=== PATIENT | female | born 1965 | race Caucasian/White ===

== ENCOUNTER 2020-07-01 11:54 | Inpatient (IN) | payer OTHER ==
--- NOTE | 2020-07-01 14:25 | Event Note ---
ED Screening Note ED Screening Note: generalized abd pain intermittent for a month +nausea initially vomiting but stopped no diarrhea normal BM no fever no dysuria PMHx none took tylenol yesterday for pain went to [facility] yesterday no longer having menstrual cycles This initial assessment/diagnostic orders/clinical plan/treatment(s) is/are subject to change based on patients health status, clinical progression and re- assessment by fellow clinical providers in the ED. Further treatment and workup at subsequent clinical providers discretion. Patient/guardian urged not to elope from the ED as their condition may be serious if not clinically assessed and managed. Initial orders include: labs, UA
[2020-07-01 15:23] LABS: Basophils % (Auto) 0.3 % (0.0-1.8); Eosinophils % (Auto) 0.2 % (0.0-4.3); Hematocrit 40.6 % (30.3-42.9); Hemoglobin 13.8 gm/dl (10.1-14.3); Lymphocytes # (Auto) 1.4 K/mm3 (1.2-5.4); Mean Corpuscular HGB Conc 34 % (30-34); Mean Corpuscular Volume 97 fl (79-97); Monocytes % (Auto) 6.4 % (0.0-7.3); Platelet Count 323 K/mm3 (140-440); Red Blood Count 4.19 M/mm3 (3.65-5.03); Red Cell Distribution Width 13.3 % (13.2-15.2)
[2020-07-01 15:31] LABS: Calcium Oxalate Crystals,Urine 1+; Hyaline Casts,Urine 1 /LPF; Mucus,Urine 1+ /HPF
[2020-07-01 15:36] LABS: Bilirubin,Urine Small (Negative); Blood,Urine Trace (Negative); Color,Urine Yellow (Yellow)
[2020-07-01 15:37] LABS: Ictotest,Urine Negative (Negative); PH,Urine 6.5 (5.0-7.0); Urobilinogen,Urine < 0.2 mg/dL (<2.0)
[2020-07-01 15:41] LABS: Alanine Aminotransferase 37 units/L (7-56); Albumin 4.1 g/dL (3.9-5); Blood Urea Nitrogen 9 mg/dL (7-17); Calcium 9.6 mg/dL (8.4-10.2); Hemolysis Index 15
[2020-07-01 15:43] LABS: BUN/Creatinine Ratio 18
--- NOTE | 2020-07-01 17:40 | Emergency Department Report ---
ED Abdominal Pain HPI - General Chief Complaint: Abdominal Pain Stated Complaint: ABD PAIN EXTREME Time Seen by Provider: 07/01/20 14:23 Source: patient Mode of arrival: Ambulatory Limitations: No Limitations - History of Present Illness Initial Comments: 55-year-old female presents to the emergency room complaining of abdominal pain for about a month. Patient states that she was seen at [facility] yesterday and they checked her urine and did an x-ray of her stomach. Patient states that he has not improved. Patient reports she is taken Tylenol yesterday and Advil PM. She denies any past medical history. She did report nausea and vomiting in the beginning but just nausea. Patient reports she does not take any medications on a daily basis. Pain is in the right lower quadrant and then will migrate to the left and all over MD Complaint: abdominal pain Onset/Timin -: month(s) Location: RUQ Radiation: LLQ Severity scale (0 -10): 8 Quality: cramping, sharp Consistency: intermittent Improves With: nothing Worsens With: nothing Associated Symptoms: nausea - Related Data Home Medications Medication Instructions Recorded Confirmed Last Taken No Known Home Medications [No 01/10/16 01/10/16 Unknown Reported Home Medications] Allergies Allergy/AdvReac Type Severity Reaction Status Date / Time No Known Allergies Allergy Unverified 11/21/15 07:15 ED Review of Systems ROS: Stated complaint: ABD PAIN EXTREME Other details as noted in HPI Comment: All other systems reviewed and negative ED Past Medical Hx - Past Medical History Previous Medical History?: Yes Hx GERD: Yes Hx Arthritis: Yes (hands) Hx Kidney Stones: Yes (removed laser surgery) Hx HIV: No - Social History Smoking Status: Never Smoker Substance Use Type: None - Medications Home Medications: Home Medications Medication Instructions Recorded Confirmed Last Taken Type No Known Home Medications [No 01/10/16 01/10/16 Unknown History Reported Home Medications] ED Physical Exam - General Limitations: No Limitations General appearance: alert, in no apparent distress - Head Head exam: Present: atraumatic, normocephalic - Eye Eye exam: Present: normal appearance - ENT ENT exam: Present: mucous membranes moist - Neck Neck exam: Present: normal inspection - Respiratory Respiratory exam: Present: accessory muscle use - GI/Abdominal GI/Abdominal exam: Present: soft. Absent: distended, tenderness - Back Exam Back exam: Present: CVA tenderness (L) - Neurological Exam Neurological exam: Present: alert, oriented X3, normal gait - Psychiatric Psychiatric exam: Present: normal affect, normal mood - Skin Skin exam: Present: warm, dry, intact, normal color. Absent: rash ED Course Vital Signs 07/01/20 12:13 Temperature 98.3 F Pulse Rate 90 Respiratory 20 Rate Blood Pressure 149/99 O2 Sat by Pulse 98 Oximetry - Consultations Consultation #1: 07/01/20 18:[address] Marshall general surgeon on-call to review over CT findings. She recommend GI consult Zosyn normal saline and n.p.o. Consultation #2: 07/01/20 19:[address] Valladares informed him of admission. Consultation #3: 07/01/20 19:[address] Samuel GI specialist he stated he will consult Dr. Marshall. He return call to nv to start Solu-Medrol 20 mg IV every 8 and he will evaluate patient on the floor ED Medical Decision Making - Lab Data Result diagrams: 07/01/20 14:57 07/01/20 14:57 - Radiology Data Radiology results: report reviewed Patient: LUCIANO CERVANTES MR#: [id number] : 1965 Acct:[id number] Age/Sex: 55 / F ADM Date: 07/01/20 Loc: ED Attending Dr: Ordering Physician: NAOMI SANDERS Date of Service: 07/01/20 Procedure(s): CT abdomen pelvis w con Accession Number(s): [id number] cc: NAOMI SANDERS CT ABDOMEN AND PELVIS WITH CONTRAST INDICATION: Abdominal pain with nausea. TECHNIQUE: Axial CT images were obtained through the abdomen and pelvis after 100 cc Omni [address] scans at this location are performed using CT dose reduction for ALARA by means of automated exposure control. COMPARISON: None available. FINDINGS: LOWER CHEST: No significant abnormality. LIVER: No significant abnormality. GALLBLADDER: No significant abnormality. BILE DUCTS: No significant abnormality. PANCREAS: No significant abnormality. SPLEEN: No significant abnormality. ADRENALS: No significant abnormality. RIGHT KIDNEY and URETER: Complex 8mm right upper pole renal cyst with coarse calcification in its wall. Tiny nonobstructing 1 mm punctate right renal stone. LEFT KIDNEY and URETER: No significant abnormality. STOMACH and SMALL BOWEL: Markedly thickened terminal ileum and cecum characteristic for Crohn's disease. COLON: Moderately thickened cecum characteristic for Crohn's colitis APPENDIX: Dilated and fluid filled measuring 1.6 cm characteristic for appendicitis with moderate amount of periappendiceal inflammation PERITONEUM: No free fluid. No free air. No fluid collection. LYMPH NODES: Multiple shotty reactive subcentimeter pericecal and mesenteric lymph nodes. AORTA and ARTERIES: No significant abnormality. IVC and VEINS: No significant abnormality. URINARY BLADDER: No significant abnormality. REPRODUCTIVE ORGANS: No significant abnormality. ADDITIONAL FINDINGS: None. SKELETAL SYSTEM: No significant abnormality. IMPRESSION: 1. Acute appendicitis and markedly thickened cecum and distal small bowel likely secondary to underlying Crohn's disease with secondary appendicitis from adjacent inflammation less likely severe acute appendicitis with marked secondary involvement of terminal ileum and cecum. Signer Name: Frank Powers MD Signed: 07/01/2020 6:24 PM Workstation Name: [id number] Transcribed By: TL Dictated By: Frank Powers MD Electronically Authenticated By: Frank Powers MD Signed Date/Time: 07/01/201823 DD/ 10 TD/TT: - Medical Decision Making 55-year-old female presents to the emergency room complaining of abdominal pain for about a month. Patient states that she was seen at [facility] yesterday and they checked her urine and did an x-ray of her stomach. Patient states that he has not improved. Patient reports she is taken Tylenol yesterday and Advil PM. She denies any past medical history. She did report nausea and vomiting in the beginning but just nausea. Patient reports she does not take any medications on a daily basis. Pain is in the right lower quadrant and then will migrate to the left and all over. CT scan shows that she has acute appendicitis versus Crohn's flareup which is a new diagnosis for this patient. Patient does have an elevated white count of 15.8. Patient is initiated normal saline, Zosyn, morphine 2 mg, and in place NPO. Waiting for GI consult spoke to surgery. Critical care attestation.: If time is entered above; I have spent that time in minutes in the direct care of this critically ill patient, excluding procedure time. ED Disposition Clinical Impression: Crohn's disease of appendix, Leukocytosis Disposition: OP ADMIT IP TO THIS HOSP Is pt being admited?: Yes Does the pt Need Aspirin: Yes Condition: Stable Instructions: Abdominal Pain (ED) Referrals: PRIMARY CARE,MD [Primary Care Provider] - 3-5 Days
--- NOTE | 2020-07-01 18:29 | Cat Scan Report ---
CT ABDOMEN AND PELVIS WITH CONTRAST INDICATION: Abdominal pain with nausea. TECHNIQUE: Axial CT images were obtained through the abdomen and pelvis after 100 cc Omni [address] scans at this location are performed using CT dose reduction for ALARA by means of automated expos ure control. COMPARISON: None available. FINDINGS: LOWER CHEST: No significant abnormality. LIVER: No significant abnormality. GALLBLADDER: No significant abnormality. BILE DUCTS: No significant abnormality. PANCREAS: No significant abnormality. SPLEEN: No significant abnormality. ADRENALS: No significant abnormality. RIGHT KIDNEY and URETER: Complex 8mm right upper pole renal cyst with coarse calcification in its wal l. Tiny nonobstructing 1 mm punctate right renal stone. LEFT KIDNEY and URETER: No significant abnormality. STOMACH and SMALL BOWEL: Markedly thickened terminal ileum and cecum characteristic for Crohn's disea se. COLON: Moderately thickened cecum characteristic for Crohn's colitis APPENDIX: Dilated and fluid filled measuring 1.6 cm characteristic for appendicitis with moderate nacho unt of periappendiceal inflammation PERITONEUM: No free fluid. No free air. No fluid collection. LYMPH NODES: Multiple shotty reactive subcentimeter pericecal and mesenteric lymph nodes. AORTA and ARTERIES: No significant abnormality. IVC and VEINS: No significant abnormality. URINARY BLADDER: No significant abnormality. REPRODUCTIVE ORGANS: No significant abnormality. ADDITIONAL FINDINGS: None. SKELETAL SYSTEM: No significant abnormality. IMPRESSION: 1. Acute appendicitis and markedly thickened cecum and distal small bowel likely secondary to underly ing Crohn's disease with secondary appendicitis from adjacent inflammation less likely severe acute a ppendicitis with marked secondary involvement of terminal ileum and cecum. Signer Name: Frank Powers MD Signed: 07/01/2020 6:24 PM Workstation Name: [id number]
[2020-07-01] MEDS ORDERED: SODIUM CHLORIDE 0.9% 1000 ML 1,000 ML IV ONE (18:38)
[2020-07-01] MEDS ORDERED: MORPHINE 2 MG/1 ML INJ IV ONE (18:38)
[2020-07-01] MEDS ORDERED: ONDANSETRON 4 MG/2 ML INJ IV ONE (18:39)
[2020-07-01] MEDS ORDERED: PIPERACILLIN/TAZOBACTAM 3.375 3.375 GM/50 ML BAG IV ONE (18:44)
[2020-07-01] MEDS ORDERED: SODIUM CHLORIDE 0.9% IV SCH (20:00)
[2020-07-01] MEDS ORDERED: METHYLPREDNISOLONE SOD SUC IV SCH (20:00)
--- NOTE | 2020-07-01 22:36 | History and Physical Report ---
History of Present Illness Date of examination: 07/01/20 Date of admission: 07/01/20 18:59 Chief complaint: Abdominal pain off and on for 1 month History of present illness: 55-year-old female with history of arthritis and GERD and kidney stones comes in for abdominal pain of 1 month duration. Patient went to [facility] and they gave him symptomatic treatment with no relief. Patient comes in for nausea and vomiting and diffuse abdominal pain. Abdominal pain is a 6-8 on a scale of 1-10. Intermittent in nature. No diarrhea. Some nausea and vomiting present. No fever. No exposure to coronavirus. Not on any home medications. - Past Medical History Previous Medical History?: Yes --GERD: Yes --Arthritis: Yes (hands) --Kidney Stones: Yes (removed laser surgery) Surgical history None - Social History Smoking Status: Never Smoker Substance Use Type: None - Medications Home Medications: Home Medications Medication Instructions Recorded Confirmed Last Taken Type No Known Home Medications [No 01/10/16 01/10/16 Unknown History Reported Home Medications] Review of Systems ROS: Stated complaint: ABD PAIN EXTREME Other details as noted in HPI Comment: All other systems reviewed and negative Medications and Allergies Allergies Allergy/AdvReac Type Severity Reaction Status Date / Time No Known Allergies Allergy Unverified 11/21/15 07:15 Home Medications Medication Instructions Recorded Confirmed Last Taken Type No Known Home Medications [No 01/10/16 01/10/16 Unknown History Reported Home Medications] Active Meds: Active Medications Methylprednisolone Sodium Succinate (Solu-Medrol) 20 mg IV Q8HR JENNIFER Exam - Constitutional Vitals: Temp Pulse Resp BP Pulse Ox 98.2 F 82 18 142/80 98 07/01/20 20:13 07/01/20 20:13 07/01/20 20:13 07/01/20 20:13 07/01/20 20:13 General appearance: Present: no acute distress, well-nourished - EENT Eyes: Present: PERRL ENT: hearing intact, clear oral mucosa - Neck Neck: Present: supple, normal ROM - Respiratory Respiratory effort: normal Respiratory: bilateral: CTA - Cardiovascular Heart rate: 78 Rhythm: regular Heart Sounds: Present: S1 & S2. Absent: rub, click - Extremities Extremities: pulses symmetrical, No edema Peripheral Pulses: within normal limits - Abdominal General gastrointestinal: Present: soft, tender, non-distended, normal bowel sounds Localized gastrointestinal: tender: diffuse (No guarding or rigidity.) Female genitourinary: Present: normal - Integumentary Integumentary: Present: clear, warm, dry - Musculoskeletal Musculoskeletal: gait normal, strength equal bilaterally - Psychiatric Psychiatric: appropriate mood/affect, intact judgment & insight - Neurologic Neurologic: CNII-XII intact, moves all extremities Results - Labs CBC & Chem 7: 07/01/20 14:57 07/01/20 14:57 Labs: Laboratory Last Values WBC 15.8 K/mm3 (4.5-11.0) H 07/01/20 14:57 RBC 4.19 M/mm3 (3.65-5.03) 07/01/20 14:57 Hgb 13.8 gm/dl (10.1-14.3) 07/01/20 14:57 Hct 40.6 % (30.3-42.9) 07/01/20 14:57 MCV 97 fl (79-97) 07/01/20 14:57 MCH 33 pg (28-32) H 07/01/20 14:57 MCHC 34 % (30-34) 07/01/20 14:57 RDW 13.3 % (13.2-15.2) 07/01/20 14:57 Plt Count 323 K/mm3 (140-440) 07/01/20 14:57 Lymph % (Auto) 9.0 % (13.4-35.0) L 07/01/20 14:57 [place] % (Auto) 6.4 % (0.0-7.3) 07/01/20 14:57 Eos % (Auto) 0.2 % (0.0-4.3) 07/01/20 14:57 Baso % (Auto) 0.3 % (0.0-1.8) 07/01/20 14:57 Lymph # (Auto) 1.4 K/mm3 (1.2-5.4) 07/01/20 14:57 [place] # (Auto) 1.0 K/mm3 (0.0-0.8) H 07/01/20 14:57 Eos # (Auto) 0.0 K/mm3 (0.0-0.4) 07/01/20 14:57 Baso # (Auto) 0.0 K/mm3 (0.0-0.1) 07/01/20 14:57 Seg Neutrophils % 84.1 % (40.0-70.0) H 07/01/20 14:57 Seg Neutrophils # 13.3 K/mm3 (1.8-7.7) H 07/01/20 14:57 Sodium 140 mmol/L (137-145) 07/01/20 14:57 Potassium 4.2 mmol/L (3.6-5.0) 07/01/20 14:57 Chloride 101.7 mmol/L (98-107) 07/01/20 14:57 Carbon Dioxide 29 mmol/L (22-30) 07/01/20 14:57 Anion Gap 14 mmol/L 07/01/20 14:57 BUN 9 mg/dL (7-17) 07/01/20 14:57 Creatinine 0.5 mg/dL (0.6-1.2) L 07/01/20 14:57 Estimated GFR > 60 ml/min 07/01/20 14:57 BUN/Creatinine Ratio 18 % 07/01/20 14:57 Glucose 106 mg/dL (65-100) H 07/01/20 14:57 Calcium 9.6 mg/dL (8.4-10.2) 07/01/20 14:57 Total Bilirubin 0.50 mg/dL (0.1-1.2) 07/01/20 14:57 AST 20 units/L (5-40) 07/01/20 14:57 ALT 37 units/L (7-56) 07/01/20 14:57 Alkaline Phosphatase 199 units/L (35-129) H 07/01/20 14:57 Total Protein 7.5 g/dL (6.3-8.2) 07/01/20 14:57 Albumin 4.1 g/dL (3.9-5) 07/01/20 14:57 Albumin/Globulin Ratio 1.2 % 07/01/20 14:57 Lipase 14 units/L (13-60) 07/01/20 14:57 Urine Color Yellow (Yellow) 07/01/20 14:37 Urine Turbidity Clear (Clear) 07/01/20 14:37 Urine pH 6.5 (5.0-7.0) 07/01/20 14:37 Ur Specific [place] 1.020 (1.003-1.030) 07/01/20 14:37 Urine Protein 30 mg/dl mg/dL (Negative) 07/01/20 14:37 Urine Glucose (UA) Negative mg/dL (Negative) 07/01/20 14:37 Urine Ketones 5 mg/dL (Negative) 07/01/20 14:37 Urine Blood Trace (Negative) 07/01/20 14:37 Urine Nitrite Negative (Negative) 07/01/20 14:37 Ur Reducing Substances Not Reportable 07/01/20 14:37 Urine Bilirubin Small (Negative) 07/01/20 14:37 Urine Ictotest Negative (Negative) 07/01/20 14:37 Urine Urobilinogen < 0.2 mg/dL (<2.0) 07/01/20 14:37 Ur Leukocyte Esterase Trace (Negative) 07/01/20 14:37 Urine WBC (Auto) 8.0 /HPF (0.0-6.0) H 07/01/20 14:37 Urine RBC (Auto) 9.0 /HPF (0.0-6.0) 07/01/20 14:37 U Epithel Cells (Auto) 6.0 /HPF (0-13.0) 07/01/20 14:37 Calcium Oxalate Crystal 1+ 07/01/20 14:37 Hyaline Casts 1 /LPF 07/01/20 14:37 Urine Mucus 1+ /HPF 07/01/20 14:37 Short CBC 07/01/20 Range/Units 14:57 WBC 15.8 H (4.5-11.0) K/mm3 Hgb 13.8 (10.1-14.3) gm/dl Hct 40.6 (30.3-42.9) % Plt Count 323 (140-440) K/mm3 BMP 07/01/20 14:57 Sodium 140 Potassium 4.2 Chloride 101.7 Carbon Dioxide 29 BUN 9 Creatinine 0.5 L Glucose 106 H Calcium 9.6 Liver Function 07/01/20 Range/Units 14:57 Total Bilirubin 0.50 (0.1-1.2) mg/dL AST 20 (5-40) units/L ALT 37 (7-56) units/L Alkaline Phosphatase 199 H (35-129) units/L Albumin 4.1 (3.9-5) g/dL Urine 12/06/20 Range/Units 14:37 Urine Color Yellow (Yellow) Urine pH 6.5 (5.0-7.0) Ur Specific [place] 1.020 (1.003-1.030) Urine Protein 30 mg/dl (Negative) mg/dL Urine Glucose (UA) Negative (Negative) mg/dL - Imaging and Cardiology CT scan - abdomen: report reviewed Imaging and Cardiology: Abdominal CT STOMACH and SMALL BOWEL: Markedly thickened terminal ileum and cecum characteristic for Crohn's disease. COLON: Moderately thickened cecum characteristic for Crohn's colitis APPENDIX: Dilated and fluid filled measuring 1.6 cm characteristic for appendicitis with moderate amount of periappendiceal inflammation PERITONEUM: No free fluid. No free air. No fluid collection. LYMPH NODES: Multiple shotty reactive subcentimeter pericecal and mesenteric lymph nodes. AORTA and ARTERIES: No significant abnormality. IVC and VEINS: No significant abnormality. URINARY BLADDER: No significant abnormality. REPRODUCTIVE ORGANS: No significant abnormality. ADDITIONAL FINDINGS: None. SKELETAL SYSTEM: No significant abnormality. IMPRESSION: 1. Acute appendicitis and markedly thickened cecum and distal small bowel likely secondary to underlying Crohn's disease with secondary appendicitis from adjacent inflammation less likely severe acute appendicitis with marked secondary involvement of terminal ileum and cecum. Florentino/IV: IV Catheter Type [Right Distal INT / Saline Lock Port Antecubital] Assessment and Plan Advance Directives: Yes (Full code) VTE prophylaxis?: Chemical Plan of care discussed with patient/family: Yes - Patient Problems (1) SIRS (systemic inflammatory response syndrome) Current Visit: Yes Status: Acute Plan to address problem: Patient has a high white count (2) Exacerbation of Crohn's disease Current Visit: Yes Status: Acute Qualifiers: Digestive disease complication type: without complication Qualified Code(s): K50.90 - Crohn's disease, unspecified, without complications Plan to address problem: Patient with newly diagnosed Crohn's disease involving the terminal ileum and cecum and appendix Surgery consult and GI consult requested Patient started on Zosyn and Flagyl Steroids were not started. Will defer to gastroenterology. IV fluids for now. (3) DVT prophylaxis Current Visit: Yes Status: Acute Plan to address problem: On heparin and GI prophylaxis
[2020-07-01] MEDS ORDERED: HYDROmorphone 1 MG/1 ML INJ IV PRN (22:40)
[2020-07-01] MEDS ORDERED: METOCLOPRAMIDE 10 MG/2 ML INJ IV PRN (22:40)
[2020-07-01] MEDS ORDERED: ACETAMINOPHEN 325 MG TAB PO PRN (22:40)
[2020-07-01] MEDS ORDERED: MORPHINE 2 MG/1 ML INJ IV PRN (22:40)
[2020-07-01] MEDS ORDERED: ONDANSETRON 4 MG/2 ML INJ IV PRN (22:40)
[2020-07-01] MEDS: metroNIDAZOLE/NS 500 MG/100 ML 500 MG/100 ML BAG IV SCH (23:26)
[2020-07-01] MEDS: HEPARIN 5,000 UNIT/1 ML VIAL SUB-Q SCH (23:26)
[2020-07-01] MEDS: methylPREDNISolone Sod Succinate 40 MG/1 ML INJ IV SCH (23:26)
[2020-07-01] MEDS: FAMOTIDINE 20 MG/2 ML INJ IV SCH (23:34)
[2020-07-01] MEDS: SODIUM CHLORIDE 0.9% 1000 ML 1,000 ML IV SCH (23:34)
[2020-07-02] MEDS: methylPREDNISolone Sod Succinate 40 MG/1 ML INJ IV SCH ×3 (05:20→22:31)
[2020-07-02] MEDS: metroNIDAZOLE/NS 500 MG/100 ML 500 MG/100 ML BAG IV SCH ×3 (05:20→22:31)
[2020-07-02] MEDS: PIPERACIL/TAZOBACTA 4.5/NS 100 4.5 GM/100 ML VIAL IV SCH ×2 (06:00→14:17)
[2020-07-02 06:41] LABS: Hematocrit 37.7 % (30.3-42.9); Hemoglobin 12.4 gm/dl (10.1-14.3); Mean Corpuscular HGB Conc 33 % (30-34); Mean Corpuscular Volume 96 fl (79-97); Platelet Count 317 K/mm3 (140-440); Red Blood Count 3.92 M/mm3 (3.65-5.03)
[2020-07-02 07:09] LABS: Alanine Aminotransferase 26 units/L (7-56); Albumin 3.3 g/dL (3.9-5); Blood Urea Nitrogen 13 mg/dL (7-17); Calcium 9.4 mg/dL (8.4-10.2); Hemolysis Index 0
[2020-07-02 07:24] LABS: BUN/Creatinine Ratio 22
[2020-07-02] MEDS: FAMOTIDINE 20 MG/2 ML INJ IV SCH ×2 (10:22→22:31)
[2020-07-02] MEDS: HEPARIN 5,000 UNIT/1 ML VIAL SUB-Q SCH ×2 (10:22→22:31)
--- NOTE | 2020-07-02 10:29 | Progress Note ---
Assessment and Plan Assessment and plan: Patient Problems (1) SIRS (systemic inflammatory response syndrome) Current Visit: Yes Status: Acute Plan to address problem: Patient has a high white count Trend labs (2) Exacerbation of Crohn's disease Current Visit: Yes Status: Acute Qualifiers: Digestive disease complication type: without complication Qualified Code(s): K50.90 - Crohn's disease, unspecified, without complications Plan to address problem: Patient with newly diagnosed Crohn's disease involving the terminal ileum and cecum and appendix Continue Zosyn Steroids N.p.o. for now Continue IV hydration GI and general surgery consulted (3) DVT prophylaxis Current Visit: Yes Status: Acute Plan to address problem: On heparin and GI prophylaxis History Interval history: Patient seen and examined at bedside this morning Has right-sided abdominal pain. Denies any diarrhea or vomiting. General surgery and gastroenterology consulted Hospitalist Physical - Physical exam Narrative exam: VITAL SIGNS: Reviewed. GENERAL: Awake HEAD: No signs of head trauma. EYES: Pupils are equal. Extraocular motions intact. MOUTH: Oropharynx is normal. NECK: No adenopathy, no JVD. CHEST: Chest with diminished breath sounds bilaterally. No wheezes, rales, or rhonchi. CARDIAC: normal S1 and S2, without murmurs, gallops, or rubs. ABDOMEN: Soft, tender left lower quadrant, no rebound or guarding, and no masses palpated. Bowel Sounds normal. MUSCULOSKELETAL: No edema NEUROLOGIC EXAM: Alert and oriented x3. No focal neurologic deficits SKIN: No obvious lesions - Constitutional Vitals: Temp Pulse Resp BP Pulse Ox 98.7 F 75 16 94/62 96 07/02/20 04:31 07/02/20 04:31 07/02/20 04:31 07/02/20 04:31 07/02/20 04:31 Results - Labs CBC & Chem 7: 07/02/20 05:28 07/02/20 05:28 Labs: Laboratory Last Values WBC 12.1 K/mm3 (4.5-11.0) H 07/02/20 05:28 RBC 3.92 M/mm3 (3.65-5.03) 07/02/20 05:28 Hgb 12.4 gm/dl (10.1-14.3) 07/02/20 05:28 Hct 37.7 % (30.3-42.9) 07/02/20 05:28 MCV 96 fl (79-97) 07/02/20 05:28 MCH 32 pg (28-32) 07/02/20 05:28 MCHC 33 % (30-34) 07/02/20 05:28 RDW 13.0 % (13.2-15.2) L 07/02/20 05:28 Plt Count 317 K/mm3 (140-440) 07/02/20 05:28 Lymph % (Auto) 9.0 % (13.4-35.0) L 07/01/20 14:57 Saunders % (Auto) 6.4 % (0.0-7.3) 07/01/20 14:57 Eos % (Auto) 0.2 % (0.0-4.3) 07/01/20 14:57 Baso % (Auto) 0.3 % (0.0-1.8) 07/01/20 14:57 Lymph # (Auto) 1.4 K/mm3 (1.2-5.4) 07/01/20 14:57 Saunders # (Auto) 1.0 K/mm3 (0.0-0.8) H 07/01/20 14:57 Eos # (Auto) 0.0 K/mm3 (0.0-0.4) 07/01/20 14:57 Baso # (Auto) 0.0 K/mm3 (0.0-0.1) 07/01/20 14:57 Seg Neutrophils % Hand Box Folder 07/02/20 05:28 Seg Neutrophils # 13.3 K/mm3 (1.8-7.7) H 07/01/20 14:57 Sodium 140 mmol/L (137-145) 07/02/20 05:28 Potassium 3.8 mmol/L (3.6-5.0) 07/02/20 05:28 Chloride 104.4 mmol/L (98-107) 07/02/20 05:28 Carbon Dioxide 24 mmol/L (22-30) 07/02/20 05:28 Anion Gap 15 mmol/L 07/02/20 05:28 BUN 13 mg/dL (7-17) 07/02/20 05:28 Creatinine 0.6 mg/dL (0.6-1.2) 07/02/20 05:28 Estimated GFR > 60 ml/min 07/02/20 05:28 BUN/Creatinine Ratio 22 % 07/02/20 05:28 Glucose 149 mg/dL (65-100) H 07/02/20 05:28 Hemoglobin A1c 6.2 % (4-6) H 07/02/20 05:28 Calcium 9.4 mg/dL (8.4-10.2) 07/02/20 05:28 Total Bilirubin 0.40 mg/dL (0.1-1.2) 07/02/20 05:28 AST 14 units/L (5-40) 07/02/20 05:28 ALT 26 units/L (7-56) 07/02/20 05:28 Alkaline Phosphatase 164 units/L (35-129) H 07/02/20 05:28 Total Protein 7.3 g/dL (6.3-8.2) 07/02/20 05:28 Albumin 3.3 g/dL (3.9-5) L 07/02/20 05:28 Albumin/Globulin Ratio 0.8 % 07/02/20 05:28 Lipase 14 units/L (13-60) 07/01/20 14:57 Urine Color Yellow (Yellow) 07/01/20 14:37 Urine Turbidity Clear (Clear) 07/01/20 14:37 Urine pH 6.5 (5.0-7.0) 07/01/20 14:37 Ur Specific [place] 1.020 (1.003-1.030) 07/01/20 14:37 Urine Protein 30 mg/dl mg/dL (Negative) 07/01/20 14:37 Urine Glucose (UA) Negative mg/dL (Negative) 07/01/20 14:37 Urine Ketones 5 mg/dL (Negative) 07/01/20 14:37 Urine Blood Trace (Negative) 07/01/20 14:37 Urine Nitrite Negative (Negative) 07/01/20 14:37 Ur Reducing Substances Not Reportable 07/01/20 14:37 Urine Bilirubin Small (Negative) 07/01/20 14:37 Urine Ictotest Negative (Negative) 07/01/20 14:37 Urine Urobilinogen < 0.2 mg/dL (<2.0) 07/01/20 14:37 Ur Leukocyte Esterase Trace (Negative) 07/01/20 14:37 Urine WBC (Auto) 8.0 /HPF (0.0-6.0) H 07/01/20 14:37 Urine RBC (Auto) 9.0 /HPF (0.0-6.0) 07/01/20 14:37 U Epithel Cells (Auto) 6.0 /HPF (0-13.0) 07/01/20 14:37 Calcium Oxalate Crystal 1+ 07/01/20 14:37 Hyaline Casts 1 /LPF 07/01/20 14:37 Urine Mucus 1+ /HPF 07/01/20 14:37 Florentino/IV: Voiding Method Toilet IV Catheter Type [Right Distal INT / Saline Lock Port Antecubital] Active Medications - Current Medications Current Medications: Generic Name Dose Route Start Last Admin Trade Name Freq PRN Reason Stop Dose Admin Acetaminophen 650 mg 07/01/20 22:40 Tylenol PO Q4H PRN Pain MILD(1-3)/Fever >100.5/BURNS Famotidine 20 mg 07/01/20 23:00 07/02/20 10:22 Pepcid IV 20 mg BID JENNIFER Administration Heparin Sodium (Porcine) 5,000 unit 07/01/20 23:00 07/02/20 10:22 Heparin SUB-Q 5,000 unit Q12HR JENNIFER Administration Hydromorphone HCl 0.5 mg 07/01/20 22:40 Dilaudid IV Q3H PRN Pain , Severe (7-10) Sodium Chloride 1,000 mls @ 75 mls/hr 07/01/20 22:45 07/01/20 23:34 Nacl 0.9% 1000 Ml IV 75 mls/hr DIRECT JENNIFER Administration Metronidazole 500 mg in 100 mls @ 100 mls/hr 07/01/20 23:00 07/02/20 05:20 Flagyl 500 Mg/100 Ml IV 100 mls/hr Q8HR JENNIFER Administration Protocol Piperacillin Sod/Tazobactam Sod 4.5 gm in 100 mls @ 200 mls/hr 07/02/20 06:00 07/02/20 06:00 Zosyn/Ns 4.5gm/100ml IV 200 mls/hr Q8HR JENNIFER Administration Protocol Methylprednisolone Sodium Succinate 20 mg 07/01/20 22:00 07/02/20 05:20 Solu-Medrol IV 20 mg Q8HR JENNIFER Administration Metoclopramide HCl 10 mg 07/01/20 22:40 Reglan IV Q6H PRN Nausea And Vomiting Morphine Sulfate 2 mg 07/01/20 22:40 Morphine IV Q4H PRN Pain, Moderate (4-6) Ondansetron HCl 4 mg 07/01/20 22:40 Zofran IV Q3H PRN Nausea And Vomiting Sodium Chloride 10 ml 07/02/20 10:00 07/02/20 10:23 Sodium Chloride Flush Syringe 10 Ml IV 10 ml BID JENNIFER Administration Sodium Chloride 10 ml 07/01/20 22:40 Sodium Chloride Flush Syringe 10 Ml IV PRN PRN LINE FLUSH
[2020-07-02 11:14] LABS: Band Neutrophils # (Manual) 0.2 K/mm3; Basophils % (Manual) 0 % (0.0-1.8); Eosinophils % (Manual) 0 % (0.0-4.3); Monocytes % (Manual) 0 % (0.0-7.3); Platelet Estimate Consistent w Auto; RBC Morphology Normal; Total Cells Counted 100
--- NOTE | 2020-07-02 14:47 | Event Note ---
Date: 07/02/20 full GI consult dictated - probable Crohn's disease - IV steroids, to po when stable - continue antibiotics - if continue improve can start clear liquid in am if ok with surgery - colonoscopy when stable as outpt - will follow
--- NOTE | 2020-07-02 16:15 | Event Note ---
Date: 07/02/20 Dr. Dean Marshall/ Gen Surgery consulted yesterday,I just spoke with her about this case, Pt seen and examined, my impression is that the patient has Chron's Dz and the appendiceal findings have to be evaluated in the context of the other findings in her cecum and terminal illeum. I agree with medical management, I have taken the liberty to change the antibiotics to levaquin and flagyll, and agree with steroids and clear liquids.GI on board, Dr. Marshall to see patient. I will sign off, please reconsult me if needed.
--- NOTE | 2020-07-02 16:43 | Consultation ---
History of Present Illness Consult date: 07/02/20 Reason for consult: abdominal pain Chief complaint: Abdominal pain - History of present illness History of present illness: 55-year-old female with no past medical history presents to the emergency room w ith complaints of right lower quadrant abdominal pain. The pain is sharp and does not radiate. It started approximately 1 month ago and has been intermittent since. It has gradually become worse and this prompted her to visit the emergency room. Per the patient's daughter she may have also had an episode like this more than a month ago which resolved on its own. No alleviating or exacerbating factors. Patient states that this is associated with subjective fevers. Denies nausea, vomiting, chest pain, shortness of breath, diarrhea, constipation. No hematochezia or melena. Past History Past Medical History: No medical history Past Surgical History: Social history: no significant social history Family history: no significant family history Medications and Allergies Allergies Allergy/AdvReac Type Severity Reaction Status Date / Time No Known Allergies Allergy Unverified 11/21/15 07:15 Home Medications Medication Instructions Recorded Confirmed Last Taken Type No Known Home Medications [No 01/10/16 07/02/20 Unknown History Reported Home Medications] Active Meds: Active Medications Acetaminophen (Tylenol) 650 mg PO Q4H PRN PRN Reason: Pain MILD(1-3)/Fever >100.5/BURNS Famotidine (Pepcid) 20 mg IV BID [facility] Last Admin: 07/02/20 10:22 Dose: 20 mg Documented by: Heparin Sodium (Porcine) (Heparin) 5,000 unit SUB-Q Q12HR JENNIFER Last Admin: 07/02/20 10:22 Dose: 5,000 unit Documented by: Hydromorphone HCl (Dilaudid) 0.5 mg IV Q3H PRN PRN Reason: Pain , Severe (7-10) Sodium Chloride (Nacl 0.9% 1000 Ml) 1,000 mls @ 75 mls/hr IV DIRECT JENNIFER Last Admin: 07/01/20 23:34 Dose: 75 mls/hr Documented by: Levofloxacin/Dextrose (Levaquin 750mg/150ml) 750 mg in 150 mls @ 100 mls/hr IV Q24HR JENNIFER; Protocol Metronidazole (Flagyl 500 Mg/100 Ml) 500 mg in 100 mls @ 100 mls/hr IV Q8HR JENNIFER; Protocol Methylprednisolone Sodium Succinate (Solu-Medrol) 20 mg IV Q8HR [facility] Last Admin: 07/02/20 14:21 Dose: 20 mg Documented by: Metoclopramide HCl (Reglan) 10 mg IV Q6H PRN PRN Reason: Nausea And Vomiting Morphine Sulfate (Morphine) 2 mg IV Q4H PRN PRN Reason: Pain, Moderate (4-6) Ondansetron HCl (Zofran) 4 mg IV Q3H PRN PRN Reason: Nausea And Vomiting Sodium Chloride (Sodium Chloride Flush Syringe 10 Ml) 10 ml IV BID [facility] Last Admin: 07/02/20 10:23 Dose: 10 ml Documented by: Sodium Chloride (Sodium Chloride Flush Syringe 10 Ml) 10 ml IV PRN PRN PRN Reason: LINE FLUSH Review of Systems All systems: negative (10 point ROS performed and negative except for that listed in HPI) Exam Vital Signs Temp Pulse Resp BP Pulse Ox 98.3 F 90 20 149/99 98 07/01/20 12:13 07/01/20 12:13 07/01/20 12:13 07/01/20 12:13 07/01/20 12:13 Narrative exam: Gen.: Awake, alert, oriented 3. No apparent distress ENT: Trachea midline. No lymphadenopathy. No scleral icterus or conjunctival pallor CV: S1, S2 present Respiratory: No audible wheezes Abdomen: Soft, nondistended, right lower quadrant tenderness to palpation. No rebound, rigidity, guarding Extremities: No clubbing, cyanosis, edema Results - Labs 07/02/20 05:28 07/02/20 05:28 Abnormal lab results 07/02/20 07/02/20 07/02/20 Range/Units 05:28 05:28 05:28 WBC 12.1 H (4.5-11.0) K/mm3 RDW 13.0 L (13.2-15.2) % Seg Neuts % (Manual) 94.0 H (40.0-70.0) % Lymphocytes % (Manual) 4.0 L (13.4-35.0) % Seg Neutrophils # Man 11.4 H (1.8-7.7) K/mm3 Lymphocytes # (Manual) 0.5 L (1.2-5.4) K/mm3 Glucose 149 H (65-100) mg/dL Hemoglobin A1c 6.2 H (4-6) % Alkaline Phosphatase 164 H (35-129) units/L Albumin 3.3 L (3.9-5) g/dL Diabetes panel 07/02/20 07/02/20 Range/Units 05:28 05:28 Sodium 140 (137-145) mmol/L Potassium 3.8 (3.6-5.0) mmol/L Chloride 104.4 (98-107) mmol/L Carbon Dioxide 24 (22-30) mmol/L BUN 13 (7-17) mg/dL Creatinine 0.6 (0.6-1.2) mg/dL Glucose 149 H (65-100) mg/dL Hemoglobin A1c 6.2 H (4-6) % Calcium 9.4 (8.4-10.2) mg/dL AST 14 (5-40) units/L ALT 26 (7-56) units/L Alkaline Phosphatase 164 H (35-129) units/L Total Protein 7.3 (6.3-8.2) g/dL Albumin 3.3 L (3.9-5) g/dL Calcium panel 07/02/20 Range/Units 05:28 Calcium 9.4 (8.4-10.2) mg/dL Albumin 3.3 L (3.9-5) g/dL Pituitary panel 07/02/20 Range/Units 05:28 Sodium 140 (137-145) mmol/L Potassium 3.8 (3.6-5.0) mmol/L Chloride 104.4 (98-107) mmol/L Carbon Dioxide 24 (22-30) mmol/L BUN 13 (7-17) mg/dL Creatinine 0.6 (0.6-1.2) mg/dL Glucose 149 H (65-100) mg/dL Calcium 9.4 (8.4-10.2) mg/dL Adrenal panel 07/02/20 Range/Units 05:28 Sodium 140 (137-145) mmol/L Potassium 3.8 (3.6-5.0) mmol/L Chloride 104.4 (98-107) mmol/L Carbon Dioxide 24 (22-30) mmol/L BUN 13 (7-17) mg/dL Creatinine 0.6 (0.6-1.2) mg/dL Glucose 149 H (65-100) mg/dL Calcium 9.4 (8.4-10.2) mg/dL Total Bilirubin 0.40 (0.1-1.2) mg/dL AST 14 (5-40) units/L ALT 26 (7-56) units/L Alkaline Phosphatase 164 H (35-129) units/L Total Protein 7.3 (6.3-8.2) g/dL Albumin 3.3 L (3.9-5) g/dL - Imaging CT scan - abdomen: report reviewed, image reviewed CT scan - pelvis: report reviewed, image reviewed Assessment and Plan 55 yo F with RLQ pain Ct Scan A/P - thickening of terminal ileum, cecum, and appendix Patient stable. Afebrile. HPI, exam, and imaging findings consistent with likely Crohn's disease Plan: 1. Clear liquid diet, adv as odalys 2. IVF 3. Iv abx - on levaquin/flagyl 4. prn pain control 5. DVT ppx per 1' team 6. GI on board - recs appreciated, cscope as outpatient 7. No acute surgical intervention for the appendix at this time. Continue medical management as above. Plan discussed with patient and her daughter over the telephone. Thank you for this consultation. Please call with any questions or concerns. Evaluation and treatment of this patient was during the time of the national and state emergency arising from COVID19 coronavirus pandemic. Treatment and proce dures performed meet the current and available best practice and guidelines for patient during the COVID pandemic.
--- NOTE | 2020-07-02 21:23 | Consultation ---
REFERRING PHYSICIAN: Dr. Mathieu Thorne INDICATION: 1. Abdominal pain. 2. Abnormal CT scan. HISTORY OF PRESENT ILLNESS: The patient is a 55-year-old female with history of arthritis and reflux now being seen for abdominal pain. The patient and family report she has had intermittent abdominal pain over the last couple of months associated with some nausea without vomiting. Denies any rectal bleeding. The patient reports the pain became worse over the last 2-3 days. She subsequently went to a concert and then was sent to the Emergency Room. The patient's CT scan raised the possibility of Crohn's disease versus appendicitis. She was subsequently admitted and GI consulted. She denies a history of inflammatory bowel disease. Mild weight loss noted. Denies any other specific GI problems or complaints. PAST MEDICAL HISTORY: 1. Arthritis. 2. GERD. 3. Renal kidney stones. MEDICATIONS: Reviewed and updated in chart. ALLERGIES: No known drug allergies. SOCIAL HISTORY: Denies alcohol, tobacco or drug abuse. FAMILY HISTORY: Negative for colon cancer, IBD, or liver disease. REVIEW OF SYSTEMS: GENERAL: Reports some weakness. HEENT: No visual complaints or tinnitus. PULMONARY: No shortness of breath. No cough. No chest pain. GASTROINTESTINAL: Reports abdominal pain. All points of 13-point review of systems otherwise negative. PHYSICAL EXAMINATION: VITAL SIGNS: Temperature of 98.4, pulse 66, respirations 18, blood pressure 103/65. GENERAL: Fairly nourished female, in no acute distress. HEENT: Pupils equal, round and reactive. PULMONARY: Clear to auscultation bilaterally. CARDIOVASCULAR: Regular rhythm. Normal S1, S2. ABDOMEN: Positive bowel sounds, soft, mild lower abdominal pain. No guarding, no rebound. SKIN: No obvious rashes. LABORATORY DATA: Pertinent for white count of 12.1, hemoglobin and hematocrit of 12.4 and 37.7, platelet count 317. Chem-7 within normal limits. LFTs within normal limits except for alkaline phosphatase of 164. Reports CT scan of abdomen and pelvis with contrast performed on 07/01/2020 showed signs of acute appendicitis and marked thickening of the cecum and distal small bowel, most likely related to Crohn's disease and less likely to primary appendicitis. ASSESSMENT AND PLAN: A 55-year-old female who has been having this lingering abdominal pain for more than 2 months now worse over the last 2-[address] scan, raising the possibility of Crohn's disease versus less likely appendicitis. Suspicion for Crohn's disease. PLAN: Management is noted below plan: 1. We will review CT scan. 2. We will order IBD related labs. 3. Agree with continue IV steroids with Solu-Medrol 20 mg IV q. 8 hours with plans to switch to p.o. steroids once stable. 4. Continue antibiotics with Zosyn and Flagyl as ordered. 5. When stable, we will start clear liquid diet and advance as tolerated. 6. The patient will require colonoscopy in upcoming weeks as an outpatient. 7. We will follow with further recommendation based on progress. JOB# [id number] CAB/NTS
[2020-07-03] MEDS: SODIUM CHLORIDE 0.9% 1000 ML 1,000 ML IV SCH (00:24)
[2020-07-03] MEDS: metroNIDAZOLE/NS 500 MG/100 ML 500 MG/100 ML BAG IV SCH ×3 (04:59→22:16)
[2020-07-03] MEDS: methylPREDNISolone Sod Succinate 40 MG/1 ML INJ IV SCH ×2 (04:59→13:39)
[2020-07-03 07:15] LABS: Alanine Aminotransferase 20 units/L (7-56); Albumin 3.1 g/dL (3.9-5); Blood Urea Nitrogen 12 mg/dL (7-17); Calcium 9.2 mg/dL (8.4-10.2); Hemolysis Index 7
[2020-07-03 07:20] LABS: BUN/Creatinine Ratio 24
[2020-07-03 08:44] LABS: Hematocrit 37.8 % (30.3-42.9); Hemoglobin 12.4 gm/dl (10.1-14.3); Mean Corpuscular HGB Conc 33 % (30-34); Mean Corpuscular Volume 97 fl (79-97); Platelet Count 323 K/mm3 (140-440); Red Blood Count 3.91 M/mm3 (3.65-5.03); Red Cell Distribution Width 12.7 % (13.2-15.2)
--- NOTE | 2020-07-03 08:45 | Progress Note ---
Assessment and Plan Assessment and plan: (1) SIRS (systemic inflammatory response syndrome) Current Visit: Yes Status: Acute Plan to address problem: Patient has a high white count Trend labs (2) Exacerbation of Crohn's disease Current Visit: Yes Status: Acute Qualifiers: Digestive disease complication type: without complication Qualified Code(s): K50.90 - Crohn's disease, unspecified, without complications Plan to address problem: Patient with newly diagnosed Crohn's disease involving the terminal ileum and cecum and appendix Continue Zosyn Steroids N.p.o. for now Continue IV hydration GI and general surgery consulted (3) DVT prophylaxis Current Visit: Yes Status: Acute Plan to address problem: On heparin and GI prophylaxis 07/03/2020; patient tolerated clear liquid diet, will advance as tolerated. Surgery saw her and said no surgical intervention needed. GI consult appreciated. Patient is on IV Solu-Medrol and Levaquin. Patient can be discharged tomorrow morning if stable. History Interval history: Patient was seen and evaluated this morning Hospitalist Physical - Physical exam Narrative exam: Not in cardiopulmonary distress. The patient appeared well nourished and normally developed. Vital signs as documented. Head exam is unremarkable. No scleral icterus . Neck is without jugular venous distension, thyromegaly, or carotid bruits. Lungs are clear to auscultation. Cardiac exam reveals regular rate and Rhythm. Abdominal exam mild right lower quadrant tenderness. Extremities are nonedematous and both femoral and pedal pulses are normal. CONTAINER REPAIRER: Alert and oriented 3. No focal weakness. - Constitutional Vitals: Temp Pulse Resp BP Pulse Ox 98.6 F 66 20 100/56 96 07/03/20 04:16 07/02/20 10:45 07/03/20 04:16 07/03/20 04:16 07/02/20 13:00 General appearance: Present: no acute distress, well-nourished Results - Labs CBC & Chem 7: 07/03/20 07:58 07/03/20 05:39 Labs: Laboratory Last Values WBC 12.1 K/mm3 (4.5-11.0) H 07/02/20 05:28 RBC 3.92 M/mm3 (3.65-5.03) 07/02/20 05:28 Hgb 12.4 gm/dl (10.1-14.3) 07/02/20 05:28 Hct 37.7 % (30.3-42.9) 07/02/20 05:28 MCV 96 fl (79-97) 07/02/20 05:28 MCH 32 pg (28-32) 07/02/20 05:28 MCHC 33 % (30-34) 07/02/20 05:28 RDW 13.0 % (13.2-15.2) L 07/02/20 05:28 Plt Count 317 K/mm3 (140-440) 07/02/20 05:28 Lymph % (Auto) 9.0 % (13.4-35.0) L 07/01/20 14:57 [place] % (Auto) 6.4 % (0.0-7.3) 07/01/20 14:57 Eos % (Auto) 0.2 % (0.0-4.3) 07/01/20 14:57 Baso % (Auto) 0.3 % (0.0-1.8) 07/01/20 14:57 Lymph # (Auto) 1.4 K/mm3 (1.2-5.4) 07/01/20 14:57 [place] # (Auto) 1.0 K/mm3 (0.0-0.8) H 07/01/20 14:57 Eos # (Auto) 0.0 K/mm3 (0.0-0.4) 07/01/20 14:57 Baso # (Auto) 0.0 K/mm3 (0.0-0.1) 07/01/20 14:57 Add Manual Diff Complete 07/02/20 05:28 Total Counted 100 07/02/20 05:28 Seg Neutrophils % Professor In Family Studies 07/02/20 05:28 Seg Neuts % (Manual) 94.0 % (40.0-70.0) H 07/02/20 05:28 Band Neutrophils % 2.0 % 07/02/20 05:28 Lymphocytes % (Manual) 4.0 % (13.4-35.0) L 07/02/20 05:28 Reactive Lymphs % (Man) 0 % 07/02/20 05:28 Monocytes % (Manual) 0 % (0.0-7.3) 07/02/20 05:28 Eosinophils % (Manual) 0 % (0.0-4.3) 07/02/20 05:28 Basophils % (Manual) 0 % (0.0-1.8) 07/02/20 05:28 Metamyelocytes % 0 % 07/02/20 05:28 Myelocytes % 0 % 07/02/20 05:28 Promyelocytes % 0 % 07/02/20 05:28 Blast Cells % 0 % 07/02/20 05:28 Nucleated RBC % Not Reportable 07/02/20 05:28 Seg Neutrophils # 13.3 K/mm3 (1.8-7.7) H 07/01/20 14:57 Seg Neutrophils # Man 11.4 K/mm3 (1.8-7.7) H 07/02/20 05:28 Band Neutrophils # 0.2 K/mm3 07/02/20 05:28 Lymphocytes # (Manual) 0.5 K/mm3 (1.2-5.4) L 07/02/20 05:28 Abs React Lymphs (Man) 0.0 K/mm3 07/02/20 05:28 Monocytes # (Manual) 0.0 K/mm3 (0.0-0.8) 07/02/20 05:28 Eosinophils # (Manual) 0.0 K/mm3 (0.0-0.4) 07/02/20 05:28 Basophils # (Manual) 0.0 K/mm3 (0.0-0.1) 07/02/20 05:28 Metamyelocytes # 0.0 K/mm3 07/02/20 05:28 Myelocytes # 0.0 K/mm3 07/02/20 05:28 Promyelocytes # 0.0 K/mm3 07/02/20 05:28 Blast Cells # 0.0 K/mm3 07/02/20 05:28 WBC Morphology Not Reportable 07/02/20 05:28 Hypersegmented Neuts Not Reportable 07/02/20 05:28 Hyposegmented Neuts Not Reportable 07/02/20 05:28 Hypogranular Neuts Not Reportable 07/02/20 05:28 Smudge Cells Not Reportable 07/02/20 05:28 Toxic Granulation Not Reportable 07/02/20 05:28 Toxic Vacuolation Not Reportable 07/02/20 05:28 Dohle Bodies Not Reportable 07/02/20 05:28 Pelger-Huet Anomaly Not Reportable 07/02/20 05:28 [place] Rods Not Reportable 07/02/20 05:28 Platelet Estimate Consistent w auto 07/02/20 05:28 Clumped Platelets Not Reportable 07/02/20 05:28 Plt Clumps, EDTA Not Reportable 07/02/20 05:28 Large Platelets Not Reportable 07/02/20 05:28 Giant Platelets Not Reportable 07/02/20 05:28 Platelet Satelliting Not Reportable 07/02/20 05:28 Plt Morphology Comment Not Reportable 07/02/20 05:28 RBC Morphology Normal 07/02/20 05:28 Dimorphic RBCs Not Reportable 07/02/20 05:28 Polychromasia Not Reportable 07/02/20 05:28 Hypochromasia Not Reportable 07/02/20 05:28 Poikilocytosis Not Reportable 07/02/20 05:28 Anisocytosis Not Reportable 07/02/20 05:28 Microcytosis Not Reportable 07/02/20 05:28 Macrocytosis Not Reportable 07/02/20 05:28 Spherocytes Not Reportable 07/02/20 05:28 Pappenheimer Bodies Not Reportable 07/02/20 05:28 Sickle Cells Not Reportable 07/02/20 05:28 Target Cells Not Reportable 07/02/20 05:28 Tear Drop Cells Not Reportable 07/02/20 05:28 Ovalocytes Not Reportable 07/02/20 05:28 Helmet Cells Not Reportable 07/02/20 05:28 [place] Bodies Not Reportable 07/02/20 05:28 Cameron Rings Not Reportable 07/02/20 05:28 Yessenia Cells Not Reportable 07/02/20 05:28 Bite Cells Not Reportable 07/02/20 05:28 Crenated Cell Not Reportable 07/02/20 05:28 Elliptocytes Not Reportable 07/02/20 05:28 Acanthocytes (Spur) Not Reportable 07/02/20 05:28 Rouleaux Not Reportable 07/02/20 05:28 Hemoglobin C Crystals Not Reportable 07/02/20 05:28 Schistocytes Not Reportable 07/02/20 05:28 Malaria parasites Not Reportable 07/02/20 05:28 William Bodies Not Reportable 07/02/20 05:28 Hem Pathologist Commnt No 07/02/20 05:28 Sodium 141 mmol/L (137-145) 07/03/20 05:39 Potassium 3.9 mmol/L (3.6-5.0) 07/03/20 05:39 Chloride 108.1 mmol/L (98-107) H 07/03/20 05:39 Carbon Dioxide 24 mmol/L (22-30) 07/03/20 05:39 Anion Gap 13 mmol/L 07/03/20 05:39 BUN 12 mg/dL (7-17) 07/03/20 05:39 Creatinine 0.5 mg/dL (0.6-1.2) L 07/03/20 05:39 Estimated GFR > 60 ml/min 07/03/20 05:39 BUN/Creatinine Ratio 24 % 07/03/20 05:39 Glucose 162 mg/dL (65-100) H 07/03/20 05:39 Hemoglobin A1c 6.2 % (4-6) H 07/02/20 05:28 Calcium 9.2 mg/dL (8.4-10.2) 07/03/20 05:39 Total Bilirubin 0.30 mg/dL (0.1-1.2) 07/03/20 05:39 AST 11 units/L (5-40) 07/03/20 05:39 ALT 20 units/L (7-56) 07/03/20 05:39 Alkaline Phosphatase 146 units/L (35-129) H 07/03/20 05:39 Total Protein 6.7 g/dL (6.3-8.2) 07/03/20 05:39 Albumin 3.1 g/dL (3.9-5) L 07/03/20 05:39 Albumin/Globulin Ratio 0.9 % 07/03/20 05:39 Lipase 14 units/L (13-60) 07/01/20 14:57 Urine Color Yellow (Yellow) 07/01/20 14:37 Urine Turbidity Clear (Clear) 07/01/20 14:37 Urine pH 6.5 (5.0-7.0) 07/01/20 14:37 Ur Specific [place] 1.020 (1.003-1.030) 07/01/20 14:37 Urine Protein 30 mg/dl mg/dL (Negative) 07/01/20 14:37 Urine Glucose (UA) Negative mg/dL (Negative) 07/01/20 14:37 Urine Ketones 5 mg/dL (Negative) 07/01/20 14:37 Urine Blood Trace (Negative) 07/01/20 14:37 Urine Nitrite Negative (Negative) 07/01/20 14:37 Ur Reducing Substances Not Reportable 07/01/20 14:37 Urine Bilirubin Small (Negative) 07/01/20 14:37 Urine Ictotest Negative (Negative) 07/01/20 14:37 Urine Urobilinogen < 0.2 mg/dL (<2.0) 07/01/20 14:37 Ur Leukocyte Esterase Trace (Negative) 07/01/20 14:37 Urine WBC (Auto) 8.0 /HPF (0.0-6.0) H 07/01/20 14:37 Urine RBC (Auto) 9.0 /HPF (0.0-6.0) 07/01/20 14:37 U Epithel Cells (Auto) 6.0 /HPF (0-13.0) 07/01/20 14:37 Calcium Oxalate Crystal 1+ 07/01/20 14:37 Hyaline Casts 1 /LPF 07/01/20 14:37 Urine Mucus 1+ /HPF 07/01/20 14:37 Florentino/IV: Voiding Method Toilet IV Catheter Type [Left Wrist] Peripheral IV IV Catheter Type [Right Distal INT / Saline Lock Port Antecubital] Active Medications - Current Medications Current Medications: Generic Name Dose Route Start Last Admin Trade Name Freq PRN Reason Stop Dose Admin Acetaminophen 650 mg 07/01/20 22:40 Tylenol PO Q4H PRN Pain MILD(1-3)/Fever >100.5/BURNS Famotidine 20 mg 07/01/20 23:00 07/02/20 22:31 Pepcid IV 20 mg BID JENNIFER Administration Heparin Sodium (Porcine) 5,000 unit 07/01/20 23:00 07/02/20 22:31 Heparin SUB-Q 5,000 unit Q12HR JENNIFER Administration Hydromorphone HCl 0.5 mg 07/01/20 22:40 Dilaudid IV Q3H PRN Pain , Severe (7-10) Sodium Chloride 1,000 mls @ 75 mls/hr 07/01/20 22:45 07/03/20 00:24 Nacl 0.9% 1000 Ml IV 75 mls/hr DIRECT JENNIFER Administration Levofloxacin/Dextrose 750 mg in 150 mls @ 100 mls/hr 07/02/20 16:00 07/02/20 17:55 Levaquin 750mg/150ml IV 100 mls/hr Q24HR JENNIFER Administration Protocol Metronidazole 500 mg in 100 mls @ 100 mls/hr 07/02/20 22:00 07/03/20 04:59 Flagyl 500 Mg/100 Ml IV 100 mls/hr Q8HR JENNIFER Administration Protocol Methylprednisolone Sodium Succinate 20 mg 07/01/20 22:00 07/03/20 04:59 Solu-Medrol IV 20 mg Q8HR JENNIFER Administration Metoclopramide HCl 10 mg 07/01/20 22:40 Reglan IV Q6H PRN Nausea And Vomiting Morphine Sulfate 2 mg 07/01/20 22:40 Morphine IV Q4H PRN Pain, Moderate (4-6) Ondansetron HCl 4 mg 07/01/20 22:40 Zofran IV Q3H PRN Nausea And Vomiting Sodium Chloride 10 ml 07/02/20 10:00 07/02/20 22:30 Sodium Chloride Flush Syringe 10 Ml IV 10 ml BID JENNIFER Administration Sodium Chloride 10 ml 07/01/20 22:40 Sodium Chloride Flush Syringe 10 Ml IV PRN PRN LINE FLUSH
[2020-07-03] MEDS: FAMOTIDINE 20 MG/2 ML INJ IV SCH (09:07)
[2020-07-03] MEDS: HEPARIN 5,000 UNIT/1 ML VIAL SUB-Q SCH ×2 (09:07→22:17)
--- NOTE | 2020-07-03 09:43 | Progress Note ---
Assessment and Plan 55 yo F with RLQ pain Ct Scan A/P - thickening of terminal ileum, cecum, and appendix Patient stable. Afebrile. Abdominal pain better. Plan: 1. adv as odalys 2. IVF 3. IV abx - on levaquin/flagyl 4. steroids per GI 5. prn pain control 6. DVT ppx per 1' team 7. No acute surgical intervention for the appendix at this time. Continue med ical management as above. 8. Trend WBC -> if continues to trend upwards, consider repeat CT A/P with oral and IV contrast Plan discussed with patient and her daughter over the telephone. Thank you for this consultation. Please call with any questions or concerns. Evaluation and treatment of this patient was during the time of the national and state emergency arising from COVID19 coronavirus pandemic. Treatment and procedures performed meet the current and available best practice and guidelines for patient during the COVID pandemic. Subjective Date of service: 07/03/20 Narrative: Patient seen and examined. Complains of mild pain in the right lower quadrant only during palpation. She is ambulating on her own and feels well. No fevers or chills. No nausea or vomiting. She states she feels hungry. She is tolerating clear liquid diet. Objective Vital Signs - 12hr 07/02/20 07/03/20 21:49 04:16 Temperature 98.3 F 98.6 F Respiratory 20 20 Rate Blood Pressure 101/61 100/56 - General physical appearance Narrative Exam: Gen.: Awake, alert, oriented 3. No apparent distress ENT: Trachea midline. No lymphadenopathy. No scleral icterus or conjunctival pallor CV: S1, S2 present Respiratory: No audible wheezes Abdomen: Soft, nondistended, mild point tenderness in the right lower quadrant o n palpation. No rebound, rigidity, guarding Extremities: No clubbing, cyanosis, edema - Labs 07/03/20 07:58 07/03/20 05:39 Diabetes panel 07/03/20 Range/Units 05:39 Sodium 141 (137-145) mmol/L Potassium 3.9 (3.6-5.0) mmol/L Chloride 108.1 H (98-107) mmol/L Carbon Dioxide 24 (22-30) mmol/L BUN 12 (7-17) mg/dL Creatinine 0.5 L (0.6-1.2) mg/dL Glucose 162 H (65-100) mg/dL Calcium 9.2 (8.4-10.2) mg/dL AST 11 (5-40) units/L ALT 20 (7-56) units/L Alkaline Phosphatase 146 H (35-129) units/L Total Protein 6.7 (6.3-8.2) g/dL Albumin 3.1 L (3.9-5) g/dL Calcium panel 07/03/20 Range/Units 05:39 Calcium 9.2 (8.4-10.2) mg/dL Albumin 3.1 L (3.9-5) g/dL Pituitary panel 07/03/20 Range/Units 05:39 Sodium 141 (137-145) mmol/L Potassium 3.9 (3.6-5.0) mmol/L Chloride 108.1 H (98-107) mmol/L Carbon Dioxide 24 (22-30) mmol/L BUN 12 (7-17) mg/dL Creatinine 0.5 L (0.6-1.2) mg/dL Glucose 162 H (65-100) mg/dL Calcium 9.2 (8.4-10.2) mg/dL Adrenal panel 07/03/20 Range/Units 05:39 Sodium 141 (137-145) mmol/L Potassium 3.9 (3.6-5.0) mmol/L Chloride 108.1 H (98-107) mmol/L Carbon Dioxide 24 (22-30) mmol/L BUN 12 (7-17) mg/dL Creatinine 0.5 L (0.6-1.2) mg/dL Glucose 162 H (65-100) mg/dL Calcium 9.2 (8.4-10.2) mg/dL Total Bilirubin 0.30 (0.1-1.2) mg/dL AST 11 (5-40) units/L ALT 20 (7-56) units/L Alkaline Phosphatase 146 H (35-129) units/L Total Protein 6.7 (6.3-8.2) g/dL Albumin 3.1 L (3.9-5) g/dL
[2020-07-03 11:29] LABS: Band Neutrophils # (Manual) 0.5 K/mm3; Basophils % (Manual) 0 % (0.0-1.8); Eosinophils % (Manual) 0 % (0.0-4.3); Platelet Estimate Consistent w Auto; RBC Morphology Normal; Total Cells Counted 100
--- NOTE | 2020-07-03 13:35 | Gastroenterology Progress Note ---
Assessment and Plan GI: presented w/ abdominal pain with ct scan raising possible Crohn's - pt overall improved, tolerating clear liquid diet - change steroids to Prednisone 40mg po qd - possible increase WBC due to steroid use, will follow - advance diet to soft - colonoscopy and othe IBD workup as outpt - if tolerating diet and otherwsie stable in am ok to dc on Prednisone taper - will follow Subjective Date of service: 07/03/20 Interval history: - reprots decrease abdominal pain. Wants advanced diet Objective - Constitutional Vitals: Temp Pulse Resp BP Pulse Ox 98.6 F 66 20 100/56 96 07/03/20 04:16 07/02/20 10:45 07/03/20 10:22 07/03/20 04:16 07/03/20 10:22 General appearance: no acute distress - EENT Eyes: PERRL - Respiratory Respiratory: bilateral: CTA - Cardiovascular Rhythm: regular Heart Sounds: Present: S1 & S2 - Gastrointestinal General gastrointestinal: Present: soft, non-tender, non-distended - Labs CBC & Chem 7: 07/03/20 07:58 07/03/20 05:39 Labs: Laboratory Results - last 24 hr 07/03/20 07/03/20 05:39 07:58 WBC 16.2 H RBC 3.91 Hgb 12.4 Hct 37.8 MCV 97 MCH 32 MCHC 33 RDW 12.7 L Plt Count 323 Add Manual Diff Complete Total Counted 100 Seg Neutrophils % Disk Grinder Seg Neuts % (Manual) 90.0 H Band Neutrophils % 3.0 Lymphocytes % (Manual) 3.0 L Reactive Lymphs % (Man) 0 Monocytes % (Manual) 4.0 Eosinophils % (Manual) 0 Basophils % (Manual) 0 Metamyelocytes % 0 Myelocytes % 0 Promyelocytes % 0 Blast Cells % 0 Nucleated RBC % Not Reportable Seg Neutrophils # Man 14.6 H Band Neutrophils # 0.5 Lymphocytes # (Manual) 0.5 L Abs React Lymphs (Man) 0.0 Monocytes # (Manual) 0.6 Eosinophils # (Manual) 0.0 Basophils # (Manual) 0.0 Metamyelocytes # 0.0 Myelocytes # 0.0 Promyelocytes # 0.0 Blast Cells # 0.0 WBC Morphology Not Reportable Hypersegmented Neuts Not Reportable Hyposegmented Neuts Not Reportable Hypogranular Neuts Not Reportable Smudge Cells Not Reportable Toxic Granulation Not Reportable Toxic Vacuolation Not Reportable Dohle Bodies Not Reportable Pelger-Huet Anomaly Not Reportable Cameron Rods Not Reportable Platelet Estimate Consistent w auto Clumped Platelets Not Reportable Plt Clumps, EDTA Not Reportable Large Platelets Not Reportable Giant Platelets Not Reportable Platelet Satelliting Not Reportable Plt Morphology Comment Not Reportable RBC Morphology Normal Dimorphic RBCs Not Reportable Polychromasia Not Reportable Hypochromasia Not Reportable Poikilocytosis Not Reportable Anisocytosis Not Reportable Microcytosis Not Reportable Macrocytosis Not Reportable Spherocytes Not Reportable Pappenheimer Bodies Not Reportable Sickle Cells Not Reportable Target Cells Not Reportable Tear Drop Cells Not Reportable Ovalocytes Not Reportable Helmet Cells Not Reportable [place] Bodies Not Reportable [place] Rings Not Reportable Yessenia Cells Not Reportable Bite Cells Not Reportable Crenated Cell Not Reportable Elliptocytes Not Reportable Acanthocytes (Spur) Not Reportable Rouleaux Not Reportable Hemoglobin C Crystals Not Reportable Schistocytes Not Reportable Malaria parasites Not Reportable William Bodies Not Reportable Hem Pathologist Commnt No Sodium 141 Potassium 3.9 Chloride 108.1 H Carbon Dioxide 24 Anion Gap 13 BUN 12 Creatinine 0.5 L Estimated GFR > 60 BUN/Creatinine Ratio 24 Glucose 162 H Calcium 9.2 Total Bilirubin 0.30 AST 11 ALT 20 Alkaline Phosphatase 146 H Total Protein 6.7 Albumin 3.1 L Albumin/Globulin Ratio 0.9
[2020-07-03] MEDS: FAMOTIDINE 20 MG TAB PO SCH (22:17)
[2020-07-04] MEDS: metroNIDAZOLE/NS 500 MG/100 ML 500 MG/100 ML BAG IV SCH (05:45)
[2020-07-04] MEDS: SODIUM CHLORIDE 0.9% 1000 ML 1,000 ML IV SCH (05:46)
[2020-07-04 05:57] VITALS: BP 91/46
[2020-07-04 07:00] LABS: Alanine Aminotransferase 18 units/L (7-56); Albumin 3.2 g/dL (3.9-5); BUN/Creatinine Ratio 20; Blood Urea Nitrogen 12 mg/dL (7-17); Calcium 9.2 mg/dL (8.4-10.2); Hemolysis Index 8
--- NOTE | 2020-07-04 08:18 | Discharge Summary ---
Providers - Providers Date of Admission: 07/01/20 18:59 Date of discharge: 07/04/20 Attending physician: NURY CHUA MD 07/02/20 10:25 Consult to Physician [CONS] Routine Comment: Consulting Provider: MANDI JEFFERS Physician Instructions: Reason For Exam: Crohns flare with appendicitis 07/02/20 10:27 Consult to Physician [CONS] Routine Comment: Consulting Provider: TARI AKINS Physician Instructions: Reason For Exam: Appendicitis Primary care physician: CERTIFIED OPHTHALMIC MEDICAL TECHNICIAN Hospitalization Reason for admission: Crohn's disease exacerbation Condition: Stable Hospital course: 55-year-old female with history of arthritis and GERD and kidney stones comes in for abdominal pain of 1 month duration. Patient went to [facility] and they gave him symptomatic treatment with no relief. Patient comes in for nausea and vomiting and diffuse abdominal pain. Abdominal pain is a 6-8 on a scale of 1-10. Intermittent in nature. No diarrhea. Some nausea and vomiting present. No fever. No exposure to coronavirus. Not on any home medications (1) SIRS (systemic inflammatory response syndrome) Current Visit: Yes Status: Acute Plan to address problem: Patient has a high white count Trend labs (2) Exacerbation of Crohn's disease Current Visit: Yes Status: Acute Qualifiers: Digestive disease complication type: without complication Qualified Code(s): K50.90 - Crohn's disease, unspecified, without complications Plan to address problem: Patient with newly diagnosed Crohn's disease involving the terminal ileum and cecum and appendix Continue Zosyn Steroids N.p.o. for now Continue IV hydration GI and general surgery consulted (3) DVT prophylaxis Current Visit: Yes Status: Acute Plan to address problem: On heparin and GI prophylaxis 07/03/2020; patient tolerated clear liquid diet, will advance as tolerated. Surgery saw her and said no surgical intervention needed. GI consult appreciated. Patient is on IV Solu-Medrol and Levaquin. Patient can be discharged tomorrow morning if stable.. 07/04/2020; patient tolerated full liquid diet, abdominal pain subsided. GI and surgery recommendations appreciated. Patient discharged with tapering dose of prednisone and Levaquin. Patient scheduled to see GI as an outpatient for IBD work-up and colonoscopy. Management plan was discussed with patient and her daughter over FaceTime. Disposition: TO HOME OR SELFCARE Time spent for discharge: 32 minutes - Discharge Diagnoses (1) Crohn's disease of appendix Status: Acute (2) Exacerbation of Crohn's disease Status: Acute Qualifiers: Digestive disease complication type: without complication Qualified Code(s): K50.90 - Crohn's disease, unspecified, without complications (3) Leukocytosis Status: Acute (4) SIRS (systemic inflammatory response syndrome) Status: Acute Core Measure Documentation - Palliative Care Palliative Care/ Comfort Measures: Not Applicable - Core Measures Any of the following diagnoses?: none Exam - Physical Exam Narrative exam: Not in cardiopulmonary distress. The patient appeared well nourished and normally developed. Vital signs as documented. Head exam is unremarkable. No scleral icterus . Neck is without jugular venous distension, thyromegaly, or carotid bruits. Lungs are clear to auscultation. Cardiac exam reveals regular rate and Rhythm. Abdominal exam nontender. Extremities are nonedematous and both femoral and pedal pulses are normal. TELEPHONE APPOINTMENT CLERK: Alert and oriented 3. No focal weakness. - Constitutional Vitals: Temp Pulse Resp BP Pulse Ox 97.8 F 57 L 18 91/46 98 07/04/20 03:33 07/04/20 03:33 07/04/20 03:33 07/04/20 03:33 07/04/20 03:33 Plan Activity: no restrictions Weight Bearing Status: Full Weight Bearing Diet: advance as tolerated Follow up with: PRIMARY MD RICKY [Primary Care Provider] - 3-5 Days MANDI JEFFERS MD [Staff Physician] - 14 Days (for Clonoscopy and IBD w/u) Prescriptions: levoFLOXacin [Levaquin] 250 mg PO QDAY #5 tablet oxyCODONE /ACETAMINOPHEN [Percocet 5/325] 1 tab PO Q6HR PRN #12 tablet PRN Reason: Pain predniSONE 10 mg PO QDAY #21 tab
[2020-07-04 08:29] LABS: Basophils # (Auto) 0.1 K/mm3 (0.0-0.1); Basophils % (Auto) 0.7 % (0.0-1.8); Eosinophils % (Auto) 0.2 % (0.0-4.3); Hematocrit 36.1 % (30.3-42.9); Hemoglobin 12.2 gm/dl (10.1-14.3); Lymphocytes # (Auto) 2.4 K/mm3 (1.2-5.4); Lymphocytes % (Auto) 22.4 % (13.4-35.0); Mean Corpuscular HGB Conc 34 % (30-34); Mean Corpuscular Volume 97 fl (79-97); Monocytes # (Auto) 0.7 K/mm3 (0.0-0.8); Monocytes % (Auto) 6.4 % (0.0-7.3); Platelet Count 334 K/mm3 (140-440); Red Blood Count 3.71 M/mm3 (3.65-5.03); Red Cell Distribution Width 12.7 % (13.2-15.2)
[2020-07-04] MEDS ORDERED: predniSONE 20 MG TAB PO SCH (10:00)
[2020-07-04] MEDS: HEPARIN 5,000 UNIT/1 ML VIAL SUB-Q SCH (10:46)
[2020-07-04] MEDS: FAMOTIDINE 20 MG TAB PO SCH (10:47)
--- NOTE | 2020-07-04 15:57 | Gastroenterology Progress Note ---
Assessment and Plan GI: possible Crohn's disease now improving - prednisone taper from 40mg to decrease by 10 mg per wk as outpt - Flagyl tid x 7 day - colonoscopy as outpt - ok to dc with follow up, will sign off Subjective Date of service: 07/04/20 Interval history: - reports decreased pain, toelrating po Objective - Constitutional Vitals: Temp Pulse Resp BP Pulse Ox 97.8 F 57 L 18 91/46 98 07/04/20 03:33 07/04/20 03:33 07/04/20 03:33 07/04/20 03:33 07/04/20 03:33 General appearance: no acute distress - EENT Eyes: PERRL - Respiratory Respiratory: bilateral: CTA - Cardiovascular Rhythm: regular Heart Sounds: Present: S1 & S2 - Gastrointestinal General gastrointestinal: Present: soft, non-tender, non-distended - Labs CBC & Chem 7: 07/04/20 07:53 07/04/20 05:29 Labs: Laboratory Results - last 24 hr 07/04/20 07/04/20 07/04/20 05:29 05:29 07:53 WBC 10.8 RBC 3.71 Hgb 12.2 Hct 36.1 MCV 97 MCH 33 H MCHC 34 RDW 12.7 L Plt Count 334 Lymph % (Auto) 22.4 [place] % (Auto) 6.4 Eos % (Auto) 0.2 Baso % (Auto) 0.7 Lymph # (Auto) 2.4 [place] # (Auto) 0.7 Eos # (Auto) 0.0 Baso # (Auto) 0.1 Seg Neutrophils % 70.3 H Seg Neutrophils # 7.6 Sodium 143 Potassium 3.8 Chloride 110.2 H Carbon Dioxide 25 Anion Gap 12 BUN 12 Creatinine 0.6 Estimated GFR > 60 BUN/Creatinine Ratio 20 Glucose 120 H Calcium 9.2 Total Bilirubin < 0.20 AST 12 ALT 18 Alkaline Phosphatase 134 H C-Reactive Protein 3.40 H Total Protein 6.5 Albumin 3.2 L Albumin/Globulin Ratio 1.0
[2020-07-08 04:54] LABS: Myeloperoxidase Antibody <1.0 AI (<1.0)
== END 2020-07-04 17:30 | disposition home or self-care (01) | DRG 386 ==
LOC: ED 11:54 → 3A 18:59
PROVIDERS: ADMIT Internal Medicine; ATTEND Internal Medicine
DX: K50.10 Crohn's disease of large intestine without complications (principal); R65.10 Systemic inflammatory response syndrome (SIRS) of non-infectious origin without acute organ dysfunction; D72.829 Elevated white blood cell count, unspecified; K50.90 Crohn's disease, unspecified, without complications; K21.9 Gastro-esophageal reflux disease without esophagitis; M19.90 Unspecified osteoarthritis, unspecified site; Z79.899 Other long term (current) drug therapy
CPT/HCPCS: 36415; 74177; 80053; 81001; 82785; 83036; 83690; 85007; 85025; 86021; 86140; 96365; 96367; 96375; G0378; J1644; J1956; J2270; J2405; J2543; J2920; J7030; J7512; Q9967